=== PATIENT | male | born 1985 | race African-American/Black ===

== ENCOUNTER 2017-09-26 14:54 | Inpatient (IN) | payer MEDICAID ==
[~2017-09-26] VITALS: Ht 172.7 cm; Wt 79.4 kg
[2017-09-26] MEDS ORDERED: MORPHINE SULFATE 4 MG/ML CPJ (NOT FOR IM USE) IV STA (19:03)
[2017-09-26] MEDS ORDERED: ONDANSETRON HCL 4MG/2ML VIAL IV STA (19:03)
[2017-09-26] MEDS ORDERED: FAMOTIDINE 20MG/2ML VIAL IV STA (19:03)
[2017-09-26] MEDS ORDERED: SODIUM CHLORIDE 0.9% 1,000 ML IV ONE (19:03)
[2017-09-26] MEDS ORDERED: MORPHINE SULFATE 2 MG/ML CPJ (NOT FOR IM USE) IV NR (19:36)
[2017-09-26 20:35] LABS: BASOPHILS % 0.3 % (0.0-2.0); EOSINOPHILS % 0.1 % (0.0-5.0); HEMATOCRIT. 40.8 % (42.0-52.0); LYMPHOCYTES % 25.2 % (20.0-50.0); MEAN CORPUSCULAR HEMOGLOBIN 24.2 pg (28.0-32.0); MEAN CORPUSCULAR VOLUME 75.9 fL (80.0-94.0); MEAN PLATELET VOLUME 8.7 fl (7.4-10.4); MONOCYTES % 8.7 % (2.0-8.0); NEUTROPHILS % 65.7 % (40.0-76.0); PLATELET 238 x1000/uL (130-400); RED BLOOD CELL COUNT 5.37 mill/uL (4.7-6.1); RED CELL DISTRIBUTION WIDTH 15.7 % (11.6-14.6)
[2017-09-26 20:39] LABS: INR 1.1; PROTHROMBIN TIME 11.5 sec (9.4-11.6)
[2017-09-26 20:41] LABS: CHLORIDE 104 mEq/L (98-107)
[2017-09-26 20:44] LABS: CARBON DIOXIDE 27 mEq/L (21-32)
[2017-09-26 20:58] LABS: CLARITY URINE CLEAR (CLEAR); COLOR URINE YELLOW (YELLOW); GLUCOSE URINE NEGATIVE (NEGATIVE); KETONES URINE TRACE (NEGATIVE); LEUKOCYTE ESTERASE URINE NEGATIVE (NEGATIVE); NITRITE URINE NEGATIVE (NEGATIVE); OCCULT BLOOD URINE NEGATIVE (NEGATIVE); PROTEIN URINE NEGATIVE (NEGATIVE); SPECIFIC GRAVITY URINE 1.024 (1.005-1.030)
[2017-09-26] MEDS ORDERED: IOHEXOL-300 100 ML BOTTLE ONE (23:04)
[2017-09-26] MEDS ORDERED: LEVOFLOXACIN 750MG PREMIX 150 ML IV ONE (23:30)
[2017-09-26] MEDS ORDERED: METRONIDAZOLE 500 MG PREMIX 100 ML IV ONE (23:30)
[2017-09-27 03:30] VITALS: BP 111/47
[2017-09-27 03:33] VITALS: BP 111/47
[2017-09-27] MEDS ORDERED: IPRATROPIUM/ALBUTEROL 0.5-3(2.5)MG/3ML NEB HHN PRN (04:30)
[2017-09-27] MEDS ORDERED: ONDANSETRON HCL 4MG/2ML VIAL IV PRN (04:30)
[2017-09-27] MEDS ORDERED: LORAZEPAM 2MG/ML CPJ IV PRN ×2 (04:30→12:45)
[2017-09-27] MEDS: TRAMADOL 50MG TABLET PO PRN ×2 (05:23→11:51)
[2017-09-27] MEDS ORDERED: SODIUM CHLORIDE 0.45% 1,000 ML IV SCH (05:30)
[2017-09-27 06:55] LABS: BASOPHILS % 0.3 % (0.0-2.0); EOSINOPHILS % 0.4 % (0.0-5.0); HEMATOCRIT. 38.9 % (42.0-52.0); HEMOGLOBIN. 12.5 g/dL (14.0-18.0); LYMPHOCYTES % 31.2 % (20.0-50.0); MEAN CORPUSCULAR HEMOGLOBIN 24.2 pg (28.0-32.0); MEAN CORPUSCULAR VOLUME 75.6 fL (80.0-94.0); MONOCYTES % 11.3 % (2.0-8.0); NEUTROPHILS % 56.8 % (40.0-76.0); PLATELET 241 x1000/uL (130-400); RED BLOOD CELL COUNT 5.15 mill/uL (4.7-6.1)
[2017-09-27 08:00] VITALS: BP 101/40
[2017-09-27 08:55] LABS: CHLORIDE 104 mEq/L (98-107)
[2017-09-27] MEDS ORDERED: PANTOPRAZOLE SODIUM 40 MG/VIAL IV SCH (09:00)
[2017-09-27 09:02] LABS: CARBON DIOXIDE 28 mEq/L (21-32)
[2017-09-27 12:00] VITALS: BP 117/49
[2017-09-27] MEDS ORDERED: PHENYTOIN SODIUM 100MG/2ML VIAL IV SCH (14:00)
[2017-09-27] MEDS ORDERED: METRONIDAZOLE 500 MG PREMIX 100 ML IV SCH ×2 (14:00→16:30)
[2017-09-27] MEDS ORDERED: LEVOFLOXACIN 500MG PREMIX 100 ML IV SCH (15:00)
[2017-09-27 16:00] VITALS: BP 121/70
== END 2017-09-27 17:00 | disposition left against medical advice (07) | DRG 249 ==
LOC: ER 14:54 → 7WST 23:21 → ENRESERV 09-27 02:03
PROVIDERS: ADMIT Hospitalist; ATTEND Hospitalist
DX: K52.9 Noninfective gastroenteritis and colitis, unspecified (principal); E44.1 Mild protein-calorie malnutrition; R00.1 Bradycardia, unspecified; G40.909 Epilepsy, unspecified, not intractable, without status epilepticus
CPT/HCPCS: 36415; 74177; 80048; 80053; 80185; 81003; 83690; 85025; 85610; 87040; 93005; 96361; 96365; 96367; 96375; 99285; C9113; J1165; J1956; J2270; J2405; J3490; J7030; Q9967